=== PATIENT | male | born 1940 | race Caucasian/White ===

== ENCOUNTER 2022-09-14 12:49 | Outpatient (CLI) | payer OTHER, BC, MEDICARE, SELFPAY ==
--- NOTE | ~2022-09-14 | XR_ITS ---
EXAMINATION: XR lumbar spine min 4V DATE: 09/14/2022 13:40 INDICATION: Left-sided low back pain TECHNIQUE: Anteroposterior, lateral, and bilateral oblique views of the lumbar spine, and cone-down l ateral view of the lumbosacral junction were obtained. COMPARISON: None. FINDINGS: There are 2 mm of anterolisthesis of L2 on L3 and L4 on L5. The vertebral body heights are maintained. There is moderate loss of intervertebral disc space height at L5-S1 and mild loss of inte rvertebral disc space height throughout the remainder of the lumbar spine. No fracture is identified. 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 Calcified atherosclero sis is noted. Left abdominal calcifications measuring up to 3.2 cm appear to be within the left kidne y. Surgical clips are noted in the pelvis. There is mild osteoarthritis of the hips. IMPRESSION: 1. Moderate to severe lumbar spondylosis without acute findings. Reviewed, dictated and finalized at location L. [employer]
== END 2022-09-14 12:50 | disposition home or self-care (01) ==
DX: M47.896 Other spondylosis, lumbar region (principal)
CPT/HCPCS: 72110